=== PATIENT | female | born 1935 ===

== ENCOUNTER 2024-06-15 01:35 | Outpatient (CLI) | payer MEDICARE, OTHER, SELFPAY ==
--- NOTE | 2024-06-15 | DI.MRI_ITS ---
Exam(s) MR BRAIN WO/W EXAM: MR BRAIN WO/W CLINICAL HISTORY: Meningioma, D32.9, s/p near-complete resection 02/2024, planning for TECHNIQUE: Multiplanar multisequence MRI of the brain was performed. Both noninfused and contrast i nfused sequences were performed. IV Contrast injected was cc Dotarem. COMPARISON: MR MRI BRAIN WWO from 02/28/2024 MR MRI BRAIN WWO from 03/02/2024 FINDINGS: CEREBRAL PARENCHYMA: Again noted is evidence of prior right frontal lobe surgery. There is some mild residual enhancement again noted at the margins of the resection cavity and right frontal dural surface. Some susceptibility weighted imaging signal loss is again present in resectio n cavity consistent with blood products but appearing less than previous. Amount of white matter sig nal abnormality in this region right frontal lobe is also less than previous. No new areas of hemorr brennan evident there is presently no shift of midline structures. Ventricular size is presently normal . The previously described uniformly enhancing meningioma in the left side of the foramen magnum appear s unchanged, measuring 1.3 by 1.1 cm and again compressing the left side of the cervical medullary ju nction. PITUITARY GLAND: No mass nor parasellar abnormality. No obvious abnormality in the cavernous sinuses. FLOW VOIDS: The expected flow void are noted. No evidence of obvious aneurysm nor obvious vascular ma lformation. PARANASAL SINUSES: Maxillary sinuses unremarkable. Sphenoid sinus is unremarkable. Small amount of fluid again noted in the lateral aspect of the right frontal sinus. ORBITS: No obvious new abnormal findings. Bilateral cataract surgery again noted. IMPRESSION: 1. Improvement in postsurgical site in the right frontal lobe region. Still some peripheral enhancem ent of decreasing size surgical bed cavity. Presently no shift of midline structures and ventricular size is normal bilaterally. No new areas of hemorrhage. 2. The size and mass effect exerted by the uniformly enhancing meningioma in the left side of the for amen magnum appears unchanged. This is again noted to exhibit significant mass effect upon the cervi jean claude medullary junction. DATA REPOSITORY:
[2024-06-15] MEDS: Normal Saline Flush 10 ML SYR IVP (12:30)
[2024-06-15] MEDS: Gadoterate meglumine 20 ML SYRINGE 13 ML IVP (12:30)
== END 2024-06-15 01:55 ==
PROVIDERS: Visit Provider Radiology Radiation Oncology
DX: D32.9 Benign neoplasm of meninges, unspecified (principal); Z98.890 Other specified postprocedural states
CPT/HCPCS: 70553

== ENCOUNTER 2024-09-14 03:04 | Outpatient (CLI) | payer MEDICARE, OTHER, SELFPAY ==
--- NOTE | 2024-09-14 | DI.MRI_ITS ---
Exam(s) MR BRAIN WO/W EXAM: MR BRAIN WO/W CLINICAL HISTORY: H/o frontal meningioma, D32.9, s/p subtotal resection and postop radiation TECHNIQUE: Multiplanar multisequence MRI of the brain was performed. CONTRAST MATERIAL: IV Contrast: 14 mL of Dotarem contrast administered. COMPARISON: MR MRI BRAIN WWO from 03/02/2024 MR MR BRAIN WO/W from 06/15/2024 FINDINGS: VENTRICLES AND EXTRA AXIAL SPACES: Normal in size and morphology for the patient's age. There is agai n seen a homogeneously enhancing extra-axial mass at the level of the foramen magnum. It measures 1. 2 cm transverse by 1.6 cm AP x 1.6 cm craniocaudad. It exerts some mass effect on the cervical medul debi junction. When compared to the prior examination in using similar measuring techniques, this is unchanged. HEMORRHAGE: None. CEREBRAL PARENCHYMA: No focus of restricted diffusion to suggest acute infarct. There again seen area s of hyperintense signal in the white matter on the FLAIR and T2 weighted images consistent with cube cutter nikko microvascular ischemic disease. Stable postsurgical changes are seen in the right frontal lobe a nd the right anterior cranial fossa. There is persistent mild enhancement in the region of the posts urgical changes in the anterior cranial fossa on the right. This is unchanged. MIDLINE SHIFT: None. BRAINSTEM/CEREBELLUM: Normal. CALVARIUM: Normal. ENHANCEMENT: Please see the above section under ventricles and extra-axial spaces and cerebral parenc hyma. VISUALIZED PARANASAL SINUSES/MASTOIDS: Clear. [place] OF HOOKS: Normal flow void. PITUITARY GLAND: Unremarkable. OTHER FINDINGS: IMPRESSION: 1. Since 06/15/2024, there are stable postsurgical changes in the right anterior cranial fossa. 2. Stable meningioma in the foramen magnum with stable mass effect at the cervical medullary junction . DATA REPOSITORY:
[2024-09-14] MEDS: Gadoterate meglumine 20 ML SYRINGE 14 ML IVP (10:56)
[2024-09-14] MEDS: Normal Saline Flush 10 ML SYR IVP (10:57)
== END 2024-09-14 03:24 ==
PROVIDERS: PCP Student in an Organized Health Care Education/Training Program; Visit Provider Radiology Radiation Oncology
DX: D32.9 Benign neoplasm of meninges, unspecified (principal)
CPT/HCPCS: 70553